=== PATIENT | male | born 1945 | race Caucasian/White ===

== ENCOUNTER 2018-05-29 09:01 | Day surgery (SDC) | payer MEDICARE ==
[2018-05-29] VITALS (11 sets, daily range): BP systolic 107–120; BP diastolic 66–82; PULSE 62–81; TEMP 98.1–98.3
[~2018-05-29] VITALS: Ht 175.3 cm; Wt 92.0 kg
[2018-05-29] MEDS ORDERED: ASPIRIN E.C. 8181 MG PO (09:27)
[2018-05-29] MEDS ORDERED: LIPITOR 80MG80 MG PO (09:29)
[2018-05-29 09:38] LABS: HEMATOCRIT 47.4 % (42.0-52.0); HEMOGLOBIN 15.8 g/dl (13.5-18.0); MEAN CELL VOLUME 92 fl (80.0-100.0); MEAN CORPUSCULAR HEMOGLOBIN 31 pg (27.0-31.0); MEAN CORPUSCULAR HGB CONC 33 g/dl (33.0-37.0); MEAN PLATELET VOLUME 9.1 fl (7.4-10.4); PLATELET COUNT 200 K/mm3 (130-400); RED BLOOD COUNT 5.16 M/mm3 (4.20-5.60); REDCELL DISTRIBUTION WIDTH-CV 12.8 % (11.5-14.5)
[2018-05-29 09:43] LABS: INR 1.2 (0.8-3.0); PROTHROMBIN TIME 13.2 SECONDS (9.7-12.8)
[2018-05-29 09:50] LABS: CALCIUM 8.8 mg/dL (8.4-10.2); CREATININE, serum 0.88 mg/dL (0.66-1.25)
[2018-05-29] MEDS ORDERED: LANOXIN 0.25M0.25 MG PO (12:09)
== END 2018-05-29 16:31 | disposition home or self-care (01) ==
LOC: COL.CAR 09:01
PROVIDERS: Internal Medicine Cardiovascular Disease
DX: I25.10 Atherosclerotic heart disease of native coronary artery without angina pectoris (principal); I48.0 Paroxysmal atrial fibrillation; E78.00 Pure hypercholesterolemia, unspecified; I95.9 Hypotension, unspecified; I50.30 Unspecified diastolic (congestive) heart failure; I34.0 Nonrheumatic mitral (valve) insufficiency; Z79.82 Long term (current) use of aspirin
CPT/HCPCS: J1644; J2250; J3010; Q9967

== ENCOUNTER → 2022-05-09 | Outpatient (CLI) | payer MEDICARE, OTHER ==
[~2022-05-09] MED LIST: ASPIRIN E.C. 8181 MG PO; LANOXIN 0.25M0.25 MG PO; LIPITOR 80MG80 MG PO
== END ==
LOC: COL.RAD 12:29
DX: N28.1 Cyst of kidney, acquired (principal)